=== PATIENT | female | born 1990 | race Caucasian/White ===

== ENCOUNTER → 2017-07-09 | Outpatient (REF) | payer BC | LOC: M SFHCWAGY 09:26 | PROVIDERS: ATTEND Nurse Practitioner Women's Health | DX: Z01.419 Encounter for gynecological examination (general) (routine) without abnormal findings (principal); Z11.51 Encounter for screening for human papillomavirus (HPV); R87.610 Atypical squamous cells of undetermined significance on cytologic smear of cervix (ASC-US) ==

== ENCOUNTER → 2019-09-04 | Outpatient (REF) | payer BC | LOC: M LAB REF 12:31 | PROVIDERS: ATTEND Physician Assistant | DX: N39.0 Urinary tract infection, site not specified (principal) ==

== ENCOUNTER → 2019-10-25 | Outpatient (CLI) | payer BC ==
[2019-10-25 13:22] LABS: BASO % 0.3 % (0.0-1.0); EOS % 0.5 % (0.0-3.0); HEMATOCRIT 37.7 % (36.0-47.0); HEMOGLOBIN 12.9 g/dl (12.0-15.5); LYMPH # 1.2 10^3/uL (1.5-5.0); LYMPH % 21.4 % (24.0-44.0); MEAN CORPUSCULAR HEMOGLOBIN 31.5 pg (27.0-33.0); MEAN CORPUSCULAR HGB CONC 34.2 g/dl (32.0-36.5); MONO # 0.3 10^3/uL (0.0-0.8); MONO % 5.4 % (0.0-5.0); NEUTROPHILS # 4.1 10^3/uL (1.5-8.5); NEUTROPHILS % 72.1 % (36.0-66.0); PLATELET COUNT, AUTOMATED 252 10^3/uL (150-450); WHITE BLOOD COUNT 5.7 10^3/uL (4.0-10.0)
[2019-10-25 14:40] LABS: HEPATITIS C VIRUS ABY INDEX 0.1 INDEX (<0.8); HIV 1&2 SCREEN CENTAUR NEGATIVE (NEGATIVE); RUBELLA IgG QUALITATIVE IMMUNE (IMMUNE)
[2019-10-25 15:06] LABS: CHLAMYDIA DNA AMPLIFICATION NEGATIVE (NEGATIVE); GC DNA AMPLIFICATION NEGATIVE (NEGATIVE)
== END ==
LOC: M PLALAB 09:28
PROVIDERS: ATTEND Advanced Practice Midwife
DX: Z34.01 Encounter for supervision of normal first pregnancy, first trimester (principal)

== ENCOUNTER → 2019-12-13 | Outpatient (CLI) | payer BC ==
--- NOTE | 2019-12-14 02:08 | REP ---
Clinical: Anatomical evaluation. Comparison: None . Findings: Examination demonstrates a single live intrauterine in variable presentation. motion is identified by technologist. Placenta is noted anterior and grade I without evidence for placenta previa or abruption. Amniotic fluid volume is normal. Cervix measures 3.8 cm in length and appears closed. No evidence for nuchal cord. Velamentous cord insertion noted along the right lateral/fundal portion of the placenta. Gestational age by LMP 19 weeks 4 days with STACI 05/04/2020 . Gestational age by current measurements 20 weeks 2 days with STACI 04/29/2020 . FHR equals 150 beats per minute. BPD 4.8 cm 20 weeks 3 days HC 17.7 cm 20 weeks 1 day AC 15.0 cm 20 weeks 1 day FL 3.2 cm 20 weeks 0 days HL 3.2 cm 20 weeks 5 days HC/AC ratio 1.18 Estimated weight 334 grams ( or 66 percentile). Anatomical assessment demonstrates normal structures including cranium, choroid plexus, cavum, cerebellum/posterior fossa, lungs, four-chamber heart/ventricular outflow tracts, diaphragm, stomach, cord insertion/three-vessel cord, kidneys/bladder, and extremities. Limited evaluation of the facial features and spine due to positioning. Impression: 1. Single live intrauterine in variable presentation demonstrating appropriate interval growth. 2. Velamentous cord insertion. 3. Limited evaluation of the spine and facial features. Electronically Signed by Bang Araujo MD 12/14/2019 01:59 A
== END ==
LOC: M RAD 17:31
PROVIDERS: ATTEND Advanced Practice Midwife
DX: O43.122 Velamentous insertion of umbilical cord, second trimester (principal); Z36.89 Encounter for other specified antenatal screening; Z3A.19 19 weeks gestation of pregnancy

== ENCOUNTER → 2020-01-22 | Outpatient (CLI) | payer BC ==
--- NOTE | 2020-01-22 16:29 | REP ---
Record ultrasound for follow-up of anatomy: On the prior study dated 12/13/2019 the facial profile, upper lip and spine could not be optimally demonstrated because of position. The remainder of the anatomy was unremarkable. A On the study today the facial profile is adequately demonstrated and unremarkable. On the study today the spine is adequately demonstrated and unremarkable. The lip is again suboptimally demonstrated. The remainder of the anatomy is unremarkable as previously. There is a single intrauterine gestation in a breech presentation. There is movement and cardiac activity. The heart rate is 133 beats per minute. The placenta is anterior. There is no placenta previa or abruptio. The placenta is grade zero. The amniotic fluid volume subjectively is normal. The heart rate is 133 beats per minute. Cervix measures through 0.0 cm length. Gestational age by today's ultrasound is 24-week 6 days. Gestational age by the first ultrasound is 25 weeks 2 days. Gestational age by LMP is 25 weeks 2 days. The selected STACI S 05/04/2020. weight is 763 grams/1 pound, 10 ounces. This is the 36 percentile for 25 weeks 2 days. Electronically Signed by Turner Munoz MD 01/22/2020 04:20 P
== END ==
LOC: M WHC 14:55
PROVIDERS: ATTEND Advanced Practice Midwife
DX: Z34.02 Encounter for supervision of normal first pregnancy, second trimester (principal); Z36.2 Encounter for other antenatal screening follow-up; Z3A.24 24 weeks gestation of pregnancy

== ENCOUNTER → 2020-02-01 | Outpatient (CLI) | payer BC ==
[2020-02-01 12:40] LABS: HEMATOCRIT 34.6 % (36.0-47.0); HEMOGLOBIN 11.5 g/dl (12.0-15.5); MEAN CORPUSCULAR HEMOGLOBIN 31.9 pg (27.0-33.0); MEAN CORPUSCULAR HGB CONC 33.2 g/dl (32.0-36.5); MEAN CORPUSCULAR VOLUME 96.1 fl (80.0-96.0); PLATELET COUNT, AUTOMATED 242 10^3/uL (150-450); WHITE BLOOD COUNT 10.2 10^3/uL (4.0-10.0)
== END ==
LOC: M PLALAB 08:25
PROVIDERS: ATTEND Advanced Practice Midwife
DX: Z34.02 Encounter for supervision of normal first pregnancy, second trimester (principal); Z3A.00 Weeks of gestation of pregnancy not specified

== ENCOUNTER → 2020-02-08 | Outpatient (CLI) | payer BC | LOC: M WHC 15:31 | PROVIDERS: ATTEND Obstetrics & Gynecology | DX: O43.123 Velamentous insertion of umbilical cord, third trimester (principal); Z53.9 Procedure and treatment not carried out, unspecified reason ==

== ENCOUNTER → 2020-02-20 | Outpatient (CLI) | payer BC ==
--- NOTE | 2020-02-20 10:05 | REP ---
Clinical: well-being Comparison: 01/22/2020 . Findings: Examination demonstrates a single live intrauterine in cephalic presentation. motion is identified by technologist. Placenta is noted anterior and grade I without evidence for placenta previa or abruption. Amniotic fluid volume is normal. Cervix measures 3.2 cm in length and appears closed. No evidence for nuchal cord. Gestational age by LMP 29 weeks 3 days with STACI 05/04/2020 . Gestational age by first US 29 weeks 3 days with STACI 05/04/2020 . FHR equals 138 beats per minute. Biophysical profile score: 8/8 Amniotic fluid index: 14.6 cm Umbilical cord SD ratio: 3.25 (2.50 - 3.50) Impression: Single live intrauterine in cephalic presentation demonstrating normal amniotic fluid volume and biophysical profile score.
== END ==
LOC: M WHC 08:24
PROVIDERS: ATTEND Obstetrics & Gynecology
DX: O43.123 Velamentous insertion of umbilical cord, third trimester (principal); Z3A.29 29 weeks gestation of pregnancy

== ENCOUNTER → 2020-03-08 | Outpatient (CLI) | payer BC ==
--- NOTE | 2020-03-08 15:05 | REP ---
OB ULTRASOUND: Real-time sonographic evaluation of the gravid uterus is performed. There is a single living intrauterine gestation. The estimated gestational age is 31 weeks 6 days, EDC 05/04/2020. Today's measurements indicate appropriate growth. BPD 77 mm = 31 weeks 0 days, 36th percentile HC 295 mm = 32 weeks 4 days, 61st percentile AC 281 mm = 32 weeks 1 day, 54th percentile Femur length 64 mm = 32 weeks 6 days, 64th percentile HC/AC ratio 1.05, normal range 0.96-1.15. Estimated weight 1943 grams, 51st percentile. Cervix is closed and measures 3.5 cm in length. heart rate 133 beats per minute. Amniotic fluid within normal limits, JULY 13.9 within normal range of 8.6-24.2. Visualized anatomy today includes lateral ventricles, upper lip, stomach, three vessel cord, kidneys, bladder and spine which are all grossly unremarkable. position vertex. Placenta anterior and grade 1 with no previa or abruption.
== END ==
LOC: M WHC 10:24
PROVIDERS: ATTEND Advanced Practice Midwife
DX: O43.103 Malformation of placenta, unspecified, third trimester (principal); Z3A.31 31 weeks gestation of pregnancy

== ENCOUNTER → 2020-03-15 | Outpatient (REF) | payer BC ==
[2020-03-15 12:23] LABS: HEMATOCRIT 32.5 % (36.0-47.0); HEMOGLOBIN 10.8 g/dl (12.0-15.5); MEAN CORPUSCULAR HEMOGLOBIN 30.5 pg (27.0-33.0); MEAN CORPUSCULAR HGB CONC 33.2 g/dl (32.0-36.5); MEAN CORPUSCULAR VOLUME 91.8 fl (80.0-96.0); PLATELET COUNT, AUTOMATED 208 10^3/uL (150-450); RED BLOOD COUNT 3.54 10^6/uL (4.00-5.40)
[2020-03-15 12:57] LABS: ALBUMIN 2.7 GM/DL (3.2-5.2); ALT/SGPT 18 U/L (12-78); AMYLASE 92 U/L (25-115); BILIRUBIN,DIRECT < 0.1 MG/DL (0.0-0.2); BILIRUBIN,TOTAL 0.3 MG/DL (0.2-1.0); LIPASE 102 U/L (73-393); TOTAL PROTEIN 6.6 GM/DL (6.4-8.2)
== END ==
LOC: M PLALAB 09:59
PROVIDERS: ATTEND Advanced Practice Midwife
DX: R10.11 Right upper quadrant pain (principal)

== ENCOUNTER → 2020-03-15 | Outpatient (CLI) | payer BC ==
--- NOTE | 2020-03-15 14:53 | REP ---
REASON FOR EXAM: Right upper quadrant pain. No pertinent priors. The liver is seen with a small 8 mm sized echogenic focus in the right lobe. There is no ren increased through transmission. There is no intrahepatic or extrahepatic ductal dilatation. The common bile duct measures 3 mm in it greatest transverse dimension transmission. Seen within the gallbladder, there is an echogenic focus adherent to the posterior wall measuring 4 mm. There is no pericholecystic edema. There are no echogenic foci which casts acoustic shadows. The imaged portion of the pancreas and right kidney are within normal limits. IMPRESSION: 1. Small echogenic focus seen in the liver of uncertain etiology. It might represent a small hemangioma. Previous CT scan of the abdomen obtained 03/02/2016 showed no hepatic abnormalities. Given the ultrasonographic finding of today, I would recommend pre- and post contrast enhanced dynamic hepatic CT. 2. Small echogenic focus adherent to the gallbladder wall as described above likely a small gallbladder polyp. 3-month followup ultrasound is recommended.
== END ==
LOC: M WHC 09:06
PROVIDERS: ATTEND Advanced Practice Midwife
DX: R10.11 Right upper quadrant pain (principal)

== ENCOUNTER → 2020-04-05 | Outpatient (REF) | payer BC | LOC: M SFHCWAGY 16:59 | PROVIDERS: ATTEND Advanced Practice Midwife | DX: O43.103 Malformation of placenta, unspecified, third trimester (principal); Z3A.00 Weeks of gestation of pregnancy not specified ==

== ENCOUNTER → 2020-04-08 | Outpatient (CLI) | payer BC ==
--- NOTE | 2020-04-08 20:02 | REP ---
Clinical: Anatomical evaluation. Comparison: 03/08/2020 . Findings: Examination demonstrates a single live intrauterine in cephalic presentation. motion is identified by technologist. Placenta is noted anterior and grade zero without evidence for placenta previa or abruption. Velamentous cord insertion again noted. Amniotic fluid volume is normal. Cervix measures 3.7 cm in length and appears closed. No evidence for nuchal cord. Gestational age by LMP 36 weeks 2 days with STACI 05/04/2020 . Gestational age by current measurements 35 weeks 5 days with STACI 05/08/2020 . FHR equals 128 beats per minute. Amniotic fluid index: 9.7 cm Estimated weight by current biometrical measurements 2805 grams ( 45th percentile). Impression: 1. Single live intrauterine in cephalic presentation demonstrating appropriate interval growth. 2. Velamentous cord insertion again noted.
== END ==
LOC: M WHC 08:09
PROVIDERS: ATTEND Advanced Practice Midwife
DX: O43.103 Malformation of placenta, unspecified, third trimester (principal)

== ENCOUNTER 2020-04-29 08:43 | Inpatient (IN) | payer BC ==
[2020-04-29] VITALS (14 sets, daily range): BP systolic 109–143; BP diastolic 56–87
[~2020-04-29] VITALS: Ht 162.6 cm; Wt 72.6 kg
[2020-04-29] MEDS ORDERED: PRENTAB9 PO (08:57)
[2020-04-29 09:43] LABS: HEMATOCRIT 30.7 % (36.0-47.0); MEAN CORPUSCULAR HEMOGLOBIN 27.4 pg (27.0-33.0); MEAN CORPUSCULAR HGB CONC 32.6 g/dl (32.0-36.5); MEAN CORPUSCULAR VOLUME 84.1 fl (80.0-96.0); PLATELET COUNT, AUTOMATED 171 10^3/uL (150-450); RED BLOOD COUNT 3.65 10^6/uL (4.00-5.40)
[2020-04-29] MEDS ORDERED: miSOPROStol 50 MCG 1/2 TAB (S0191) PO ONE ×3 (10:00→21:30)
[2020-04-29] MEDS ORDERED: miSOPROStol 50 MCG 1/2 TAB (S0191) PV ONE (16:00)
[2020-04-30] VITALS (58 sets, daily range): BP systolic 95–144; BP diastolic 51–93
[2020-04-30] MEDS ORDERED: OXYTOCIN 30 UNITS IN 0.9% NaCl 500ML IV BAG (J2590) As Ordered ONE ×3 (01:42→18:03)
[2020-04-30] MEDS ORDERED: OXYTOCIN DRIP 30 UNITS in IV 1 EA IV SCH ×5 (01:45→17:02)
--- NOTE | 2020-04-30 06:56 | HPE ---
DATE OF ADMISSION: 04/29/2020 Kathy is a 30-year-old, 1, para 0, at 39-2/7 weeks gestation with an expected date of confinement (EDC) of 05/04/2020 based on last menstrual period and confirmed by first trimester ultrasound. She presents to labor and delivery today for induction of labor due to velamentous cord insertion. She denies regular painful contractions, vaginal bleeding or leakage of fluid. The fetus has been active. Her care was initiated at [facility] in the first trimester. Her course was complicated by a velamentous cord insertion. She did undergo antepartum testing which returned normal results and normal growth ultrasounds. She also underwent a gallbladder ultrasound that showed a gallbladder polyp with a plan to repeat the gallbladder sono at 6 weeks and also a question of a liver hemangioma. The plan is to have a CT without contrast following her delivery. PAST MEDICAL HISTORY: Scoliosis. SURGERIES: None. FAMILY HISTORY: Asthma, rheumatoid arthritis. SOCIAL HISTORY: The patient is . Her is at bedside and supportive. She is a nonsmoker. Denies alcohol and drug use. There is no history of any sexually transmitted infections. She denies history of abuse - physical, sexual and emotional allergies. ALLERGIES: No known drug allergies. CURRENT MEDICATIONS: vitamins. OBSTETRICAL HISTORY: Primigravida. OBSTETRIC LABS: A+, antibody screen negative, RPR negative, hepatitis B surface antigen negative, hepatitis C antibody nonreactive, HIV negative, rubella immune, gonorrhea and chlamydia negative. Urine culture no growth. Gestational diabetic screening normal at 92. GBS is negative. OBJECTIVE: Temperature 97.9, pulse 73, respirations 18, blood pressure (BP) is 132/83. She is alert and oriented x3. She is in no apparent distress. heart rate is 113 with moderate variability, positive accelerations, negative decelerations. Contractions are every 2-5 minutes and do palpate mild. Her abdomen is gravid, cephalic presentation by Alberto's. Estimated weight 3000 grams. Sterile Vaginal Exam: 1 cm dilated, 80% effaced, -2 station, very posterior and soft. No show with the exam. ASSESSMENT: Intrauterine at 39-2/7 weeks. heart rate category one. PLAN: Admit the patient to labor and delivery. Routine labs. Out of bed ad gilles. Regular diet at this time. Saline lock. I do plan to start misoprostol 50 mcg by mouth for cervical ripening. The patient is desiring an epidural for her labor coping. I will likely start IV Pitocin and may consider artificial rupture of membranes (AROM) for labor augmentation following epidural. I did review all risks, benefits and alternatives with the patient. She and her have had all of their questions answered. She has been verbally consented for emergency surgery and blood products if they are necessary. I do anticipate cervical ripening and labor.
[2020-04-30] MEDS ORDERED: FENTANYL 2MCG/ML ROPIVACAINE 0.2% IN 0.9% NACL 100ML IVBAG As Ordered ONE (08:08)
[2020-04-30] MEDS ORDERED: LACTATED RINGER'S 1000 ML IV ONE (08:30)
[2020-04-30] MEDS: LR 1,000 ML IV SCH ×2 (09:23→10:34)
[2020-04-30] MEDS ORDERED: diphenhydrAMINE 50MG/ML VIAL (J1200) IV PRN ×2 (09:30→16:50)
[2020-04-30] MEDS ORDERED: LACTATED RINGER'S 1000 ML IV PRN (09:30)
[2020-04-30] MEDS ORDERED: EPIDURAL COMMENT XX SCH (09:30)
[2020-04-30] MEDS ORDERED: EPIDURAL/PCA KEYS XX PRN (09:30)
[2020-04-30] MEDS ORDERED: NALOXONE INJ 0.4MG/1ML VIAL (J2310 PER 1MG) IV PRN ×3 (09:30→16:50)
[2020-04-30] MEDS ORDERED: FENTANYL/ROPIVACAINE/NACL BAG 100 ML EPIDURAL SCH (09:30)
[2020-04-30] MEDS ORDERED: ONDANSETRON 4MG/2ML VIAL IV PRN ×3 (09:30→17:30)
[2020-04-30] MEDS ORDERED: REFRIGERATOR IV KEYS XX PRN (09:30)
[2020-04-30] MEDS ORDERED: ePHEDrine SULFATE 25 MG/5 ML(5MG/ML) SYRINGE IV PRN (09:30)
[2020-04-30] MEDS ORDERED: ceFAZolin 2 GM/D5W 50 ML IV BAG (J0690 PER 500MG) As Ordered ONE (15:49)
[2020-04-30] MEDS ORDERED: BICITRA 30ML SOLN UDC As Ordered ONE (15:49)
[2020-04-30] MEDS ORDERED: LACTATED RINGER'S 1000 ML IV STA (15:49)
[2020-04-30] MEDS ORDERED: AZITHROMYCIN INJ 500MG VIAL (J0456 PER 500MG) As Ordered ONE (15:50)
[2020-04-30] MEDS ORDERED: ceFAZolin SOD 2 GM in IV 1 EA IV ONE (16:00)
[2020-04-30] MEDS ORDERED: AZITHROMYCIN INJ 500 MG, VIAL MATE ADAPTER 1 EACH in D5W 250 ML IV ONE (16:00)
[2020-04-30] MEDS ORDERED: EPINEPHrine INJ 1 MG/ML 1ML AMP As Ordered ONE (16:12)
[2020-04-30] MEDS ORDERED: LIDOCAINE PRES-FREE 2% 10ML AMP As Ordered ONE ×2 (16:12→16:13)
[2020-04-30] MEDS ORDERED: fentaNYL 100 MCG/2 ML INJECTION (J3010) As Ordered ONE ×2 (16:45→17:21)
[2020-04-30] MEDS ORDERED: dexameTHASONE 4 MG/ML 1ML VIAL (J1100 PER 1MG) As Ordered ONE (16:47)
[2020-04-30] MEDS ORDERED: OXYTOCIN INJ 10 UNITS/ML VIAL (J2590) As Ordered ONE (16:47)
[2020-04-30] MEDS ORDERED: ONDANSETRON 4MG/2ML VIAL As Ordered ONE (16:47)
[2020-04-30] MEDS ORDERED: METOCLOPRAMIDE INJ 10MG/2ML VIAL (J2765 PER 1) IV PRN (16:50)
[2020-04-30] MEDS ORDERED: MORPHINE PRES-FREE INJ 10 MG/10 ML VIAL (J2274) As Ordered ONE (16:50)
[2020-04-30] MEDS ORDERED: NALBUPHINE HCL 10 MG/ML AMP (J2300) IV PRN ×2 (16:50→17:30)
[2020-04-30] MEDS ORDERED: LR 1,000 ML IV SCH (17:02)
[2020-04-30] MEDS ORDERED: PERCOCET 5MG/325MG TAB PO PRN (17:15)
[2020-04-30] MEDS ORDERED: MEASLES,MUMPS,RUBELLA VACCINE INJ (MMR-II) (90707) SC SCH (17:15)
[2020-04-30] MEDS ORDERED: METHYLERGONOVINE MALEATE 0.2 MG TAB PO PRN (17:15)
[2020-04-30] MEDS ORDERED: ANUSOL HC CREAM 30GM TOP PRN (17:15)
[2020-04-30] MEDS ORDERED: MOM 30ML SUSPENSION UDC PO PRN (17:15)
[2020-04-30] MEDS ORDERED: ONDANSETRON 4 MG ORAL DISINTEGRATING TAB PO PRN (17:15)
[2020-04-30] MEDS ORDERED: RHOGAM 300 MCG (1500 IU) INJ (J2790) IM SCH (17:15)
[2020-04-30] MEDS: fentaNYL 100 MCG/2 ML INJECTION (J3010) IV PRN ×4 (17:24→17:51)
[2020-04-30] MEDS ORDERED: KETOROLAC 30 MG/ML 1ML VIAL IV PRN (17:30)
[2020-04-30] MEDS ORDERED: BICITRA 30ML SOLN UDC PO ONE (17:30)
[2020-04-30] MEDS ORDERED: KETOROLAC 30 MG/ML 1ML VIAL As Ordered ONE (18:10)
[2020-04-30] MEDS: KETOROLAC 30 MG/ML 1ML VIAL IV SCH ×2 (18:12→23:35)
[2020-04-30] MEDS: DOCUSATE SODIUM 100 MG CAP PO SCH (21:28)
[2020-05-01 02:00] VITALS: BP 116/68
[2020-05-01] MEDS: KETOROLAC 30 MG/ML 1ML VIAL IV SCH ×2 (05:06→13:01)
[2020-05-01 06:00] VITALS: BP 117/68
[2020-05-01] MEDS: DOCUSATE SODIUM 100 MG CAP PO SCH ×2 (07:35→20:24)
[2020-05-01] MEDS: PRENATAL VITAMINS CHEWABLE TABLET PO SCH (07:35)
[2020-05-01 09:34] LABS: HEMOGLOBIN 8.9 g/dl (12.0-15.5); MEAN CORPUSCULAR HEMOGLOBIN 26.9 pg (27.0-33.0); MEAN CORPUSCULAR HGB CONC 31.8 g/dl (32.0-36.5); MEAN CORPUSCULAR VOLUME 84.6 fl (80.0-96.0); PLATELET COUNT, AUTOMATED 152 10^3/uL (150-450); RED BLOOD COUNT 3.31 10^6/uL (4.00-5.40); WHITE BLOOD COUNT 21.7 10^3/uL (4.0-10.0)
[2020-05-01 10:00] VITALS: BP 110/71
[2020-05-01 14:04] VITALS: BP 117/66
[2020-05-01 18:00] VITALS: BP 117/77
[2020-05-01] MEDS: IBUPROFEN 800 MG TAB PO SCH (20:24)
[2020-05-01 22:00] VITALS: BP 123/75
[2020-05-01] MEDS ORDERED: SIMETHICONE 80 MG CHEW TAB PO PRN (23:15)
[2020-05-01] MEDS: PERCOCET 5MG/325MG TAB PO PRN (23:22)
[2020-05-02 02:00] VITALS: BP 113/66
[2020-05-02] MEDS: IBUPROFEN 800 MG TAB PO SCH ×2 (04:22→11:22)
[2020-05-02 06:00] VITALS: BP 114/71
[2020-05-02] MEDS: DOCUSATE SODIUM 100 MG CAP PO SCH (09:31)
[2020-05-02] MEDS: PRENATAL VITAMINS CHEWABLE TABLET PO SCH (09:31)
[2020-05-02] MEDS: PERCOCET 5MG/325MG TAB PO PRN (09:44)
--- NOTE | 2020-05-02 09:57 | DSES ---
DATE OF ADMISSION: 04/29/2020 DATE OF DISCHARGE: DISCHARGE DIAGNOSIS: Primary section, postoperative day #2, stable condition. SURGEON: Dr. Michele Chu SAP BASIS ARCHITECT: Sheba Graham, certified nurse mine captain HISTORY: Romy is a 30-year-old 1, para 1-0-0-1 now, who was admitted to labor and delivery for induction of labor. She did undergo a primary section due to arrest of descent. The surgery was uncomplicated. Her estimated blood loss (EBL) was 600 mL. She delivered a live male, 8 pounds 10 ounces, scores 8 and 9. Her postoperative course has been uncomplicated. She has been out of bed for self-care, elisabeth care. Her pain has been well managed with by mouth pain medications. She is voiding without difficulty, passing flatus, tolerating by mouth fluids and a regular diet. OBJECTIVE: Temperature 97.8, pulse 80, respirations 16, blood pressure (BP) is 113/66. Preoperative complete blood count (CBC) on 04/29/2020 with a hemoglobin of 10.0, hematocrit 30.7, platelet 171. Postoperative CBC on 05/01/2020: Hemoglobin 8.9, hematocrit 28.0, platelet 152. Her breasts are soft and nontender. Nipples are intact. Abdomen: Fundus firm at one fingerbreadth below umbilicus. Her incision with dressing applied. There is no new drainage. Perineum is intact. Lochia rubra scant. Bilateral lower extremities negative for edema. PLAN: Discharge the patient home today. Prescriptions have been E-prescribed to her pharmacy by Dr. Michele Chu. She is to followup at [facility] for a 2-week incision check and an 8-week visit. I did review discharge instructions that include breast care, incision care, elisabeth care, activity and lifting restrictions, pelvic rest, danger signs to report, and access to care.
[2020-05-03] MEDS ORDERED: OXYC1TAB23 PO (10:46)
[2020-05-03] MEDS ORDERED: IBUP-1022 PO (10:47)
--- NOTE | 2020-05-06 07:06 | RO ---
DATE OF DELIVERY: 04/30/2020 PREDELIVERY DIAGNOSES: Term , labor, arrest of descent. POSTDELIVERY DIAGNOSIS: Delivered. PROCEDURE: Primary low transverse section. SURGEON: Michele Chu MD BRANCH CREDIT COUNSELOR: Sheba Graham CNM ANESTHESIA: Epidural. ESTIMATED BLOOD LOSS: 600 mL. URINE OUTPUT: 50 mL. FINDINGS: 3900 gram (8 pound 10 ounce) male , scores 8 and 9. Normal uterus, fallopian tubes, ovaries. OPERATIVE SUMMARY: Patient taken to the operating room, where epidural anesthesia was adequate. She was prepped and draped in sterile fashion in the supine position. Martin catheter was already in place. A Pfannenstiel skin incision was made with a scalpel and carried through to the fascia, the fascia nicked and extended. The fascia was dissected off the rectus muscles. Peritoneal cavity was entered. A Mobius retractor was placed. A bladder flap was created. A curvilinear incision was made in the lower uterine segment until light meconium-stained fluid was noted. This was extended manually. The infant was delivered from the vertex position without difficulty. The cord was doubly clamped and cut. The was handed off to the awaiting nurse. The placenta was expressed. The uterus was cleared of clots and debris. Uterine incision was closed with #0 Vicryl in running locked fashion. A second imbricating layer of #0 Vicryl was placed. Peritoneum was closed with #2-0 Vicryl in running fashion. The Mobius retractor was removed. The fascia was closed with #0 Vicryl. Deep layer was irrigated. The skin was closed with #4-0 Monocryl subcuticular sutures. Sponge, instrument, and needle counts were correct. Darcy Graham CNM, assisted throughout the procedure. She helped create each layer of the incision. She helped delivery the fetus and subsequently close. She was indispensable to the successful completion of the procedure.
== END 2020-05-02 13:00 | disposition home or self-care (01) | DRG 540 ==
LOC: M LDI 08:43 → M OBS 04-30 18:48
PROVIDERS: ADMIT Advanced Practice Midwife; ATTEND Specialist
PROC: 3E0P7GC Introduction of Other Therapeutic Substance into Female Reproductive, Via Natural or Artificial Opening (ICD-10-PCS; 2020-04-29)
PROC: 10D00Z1 Extraction of Products of Conception, Low, Open Approach (ICD-10-PCS; principal; 2020-04-30 16:48)
DX: O69.89X0 Labor and delivery complicated by other cord complications, not applicable or unspecified (principal); O64.0XX0 Obstructed labor due to incomplete rotation of fetal head, not applicable or unspecified; Z3A.39 39 weeks gestation of pregnancy; Z37.0 Single live birth

== ENCOUNTER → 2021-03-20 | Outpatient (REF) | payer BC ==
[~2021-03-20] MED LIST: IBUP-1022 PO; OXYC1TAB23 PO; PRENTAB9 PO
== END ==
LOC: M SFHCWAGY 13:20
PROVIDERS: ATTEND Nurse Practitioner Women's Health
DX: Z12.4 Encounter for screening for malignant neoplasm of cervix (principal)
CPT/HCPCS: 87624; G0123

== ENCOUNTER → 2021-11-13 | Outpatient (CLI) | payer BC ==
[2021-11-13 18:06] LABS: BASO % 0.3 % (0.0-1.0); EOS # 0.1 10^3/uL (0.0-0.5); EOS % 0.5 % (0.0-3.0); HEMATOCRIT 38.6 % (36.0-47.0); HEMOGLOBIN 13.4 g/dl (12.0-15.5); LYMPH # 2.7 10^3/uL (1.5-5.0); LYMPH % 27.2 % (24.0-44.0); MEAN CORPUSCULAR HEMOGLOBIN 31.4 pg (27.0-33.0); MEAN CORPUSCULAR HGB CONC 34.7 g/dl (32.0-36.5); MEAN CORPUSCULAR VOLUME 90.4 fl (80.0-96.0); MONO # 0.4 10^3/uL (0.0-0.8); MONO % 4.4 % (2.0-8.0); NEUTROPHILS # 6.6 10^3/uL (1.5-8.5); NEUTROPHILS % 67.3 % (36.0-66.0); PLATELET COUNT, AUTOMATED 263 10^3/uL (150-450); RED BLOOD COUNT 4.27 10^6/uL (4.00-5.40); WHITE BLOOD COUNT 9.7 10^3/uL (4.0-10.0)
[2021-11-13 19:12] LABS: HEPATITIS C VIRUS ABY INDEX 0.1 INDEX (<0.8); HIV 1&2 SCREEN CENTAUR NEGATIVE (NEGATIVE)
[2021-11-13 19:53] LABS: GC DNA AMPLIFICATION NEGATIVE (NEGATIVE)
== END ==
LOC: M PLALAB 15:05
PROVIDERS: ATTEND Advanced Practice Midwife
DX: O34.211 Maternal care for low transverse scar from previous cesarean delivery (principal); Z3A.00 Weeks of gestation of pregnancy not specified

== ENCOUNTER → 2021-12-15 | Outpatient (REF) | payer BC | LOC: M SFHCWAGY 16:59 | PROVIDERS: ATTEND Advanced Practice Midwife | DX: O26.892 Other specified pregnancy related conditions, second trimester (principal) ==

== ENCOUNTER → 2022-01-28 | Outpatient (CLI) | payer BC | LOC: M RAD 15:59 | PROVIDERS: ATTEND Advanced Practice Midwife | DX: Z34.92 Encounter for supervision of normal pregnancy, unspecified, second trimester (principal); Z36.89 Encounter for other specified antenatal screening; Z3A.19 19 weeks gestation of pregnancy ==

== ENCOUNTER → 2022-03-27 | Outpatient (CLI) | payer BC ==
[2022-03-27 15:10] LABS: HEMATOCRIT 34.2 % (36.0-47.0); HEMOGLOBIN 11.6 g/dl (12.0-15.5); MEAN CORPUSCULAR HEMOGLOBIN 31.7 pg (27.0-33.0); MEAN CORPUSCULAR HGB CONC 33.9 g/dl (32.0-36.5); MEAN CORPUSCULAR VOLUME 93.4 fl (80.0-96.0); PLATELET COUNT, AUTOMATED 221 10^3/uL (150-450); RED BLOOD COUNT 3.66 10^6/uL (4.00-5.40); WHITE BLOOD COUNT 7.8 10^3/uL (4.0-10.0)
[2022-03-27 17:03] LABS: GC DNA AMPLIFICATION NEGATIVE (NEGATIVE)
== END ==
LOC: M PLALAB 11:15
PROVIDERS: ATTEND Specialist
DX: Z34.82 Encounter for supervision of other normal pregnancy, second trimester (principal); Z3A.00 Weeks of gestation of pregnancy not specified

== ENCOUNTER → 2022-05-26 | Outpatient (REF) | payer BC | LOC: M PLALAB 07:43 | PROVIDERS: ATTEND Advanced Practice Midwife | DX: O34.219 Maternal care for unspecified type scar from previous cesarean delivery (principal) ==

== ENCOUNTER → 2022-06-21 | Outpatient (CLI) | payer BC ==
[~2022-06-21] MED LIST changes: +ACET-683 PO; +COLA100C5 PO; +PSEU30TA86 PO
== END ==
LOC: M LABSMTC 11:48
PROVIDERS: ATTEND Anesthesiology
DX: Z01.812 Encounter for preprocedural laboratory examination (principal); Z20.822 Contact with and (suspected) exposure to COVID-19

== ENCOUNTER 2022-07-29 20:07 | Emergency (ER) | payer BC ==
[~2022-07-29] VITALS: Ht 162.6 cm; Wt 56.9 kg
[2022-07-29 21:17] LABS: BASO % 0.4 % (0.0-1.0); EOS # 0.3 10^3/uL (0.0-0.5); EOS % 2.5 % (0.0-3.0); HEMATOCRIT 34.9 % (36.0-47.0); HEMOGLOBIN 11.1 g/dl (12.0-15.5); LYMPH # 1.2 10^3/uL (1.5-5.0); LYMPH % 11.3 % (24.0-44.0); MEAN CORPUSCULAR HEMOGLOBIN 27.4 pg (27.0-33.0); MEAN CORPUSCULAR HGB CONC 31.8 g/dl (32.0-36.5); MEAN CORPUSCULAR VOLUME 86.2 fl (80.0-96.0); MONO # 0.5 10^3/uL (0.0-0.8); MONO % 4.8 % (2.0-8.0); NEUTROPHILS # 8.6 10^3/uL (1.5-8.5); NEUTROPHILS % 80.4 % (36.0-66.0); PLATELET COUNT, AUTOMATED 310 10^3/uL (150-450); RED BLOOD COUNT 4.05 10^6/uL (4.00-5.40); WHITE BLOOD COUNT 10.7 10^3/uL (4.0-10.0)
[2022-07-29] MEDS ORDERED: ACETAMINOPHEN 325 MG TAB PO ONE (21:40)
[2022-07-29 21:48] LABS: ERYTHROCYTE SEDIMENTATION RATE 56 mm/hr (0-20)
[2022-07-29] MEDS ORDERED: ceFAZolin SOD 1 GM in D5W MINI-BAG PLUS 50 ML IV ONE (22:45)
[2022-07-29 23:03] VITALS: BP 107/63
[2022-07-29] MEDS ORDERED: DIFL200T PO (23:11)
== END 2022-07-29 23:21 | disposition home or self-care (01) ==
LOC: M ED 20:07
DX: N61.1 Abscess of the breast and nipple (principal); Z87.440 Personal history of urinary (tract) infections
CPT/HCPCS: 76642; 80047; 83605; 85025; 85652; 86140; 87040; 96365; 99283; J0690

== ENCOUNTER → 2022-07-31 | Outpatient (REF) | payer BC ==
[~2022-07-31] MED LIST changes: +DIFL200T PO
== END ==
LOC: M SFHCWAGY 16:54
PROVIDERS: ATTEND Surgery
DX: N61.1 Abscess of the breast and nipple (principal)

== ENCOUNTER → 2023-06-22 | Outpatient (REF) | payer BC | LOC: M SFHCWAGY 13:26 | PROVIDERS: ATTEND Advanced Practice Midwife | DX: Z12.4 Encounter for screening for malignant neoplasm of cervix (principal); R87.610 Atypical squamous cells of undetermined significance on cytologic smear of cervix (ASC-US) | CPT/HCPCS: 87624; G0123 ==

== ENCOUNTER → 2024-03-08 | Outpatient (REF) | payer BC ==
[~2024-03-08] MED LIST changes: -PSEU30TA86 PO; +PSEU30TA87 PO
== END ==
LOC: M LAB REF 17:08
PROVIDERS: ATTEND Registered Nurse
DX: R30.0 Dysuria (principal)

== ENCOUNTER → 2024-06-27 | Outpatient (REF) | payer BC ==
[2024-06-29 15:02] LABS: HPV APTIMA Not Detected (Not Detected)
== END ==
LOC: M SFHCWAGY 12:37
PROVIDERS: ATTEND Advanced Practice Midwife
DX: Z12.4 Encounter for screening for malignant neoplasm of cervix (principal); R87.610 Atypical squamous cells of undetermined significance on cytologic smear of cervix (ASC-US)
CPT/HCPCS: 87624; G0123

== ENCOUNTER → 2025-11-06 | Outpatient (REF) | payer BC ==
[~2025-11-06] MED LIST changes: -IBUP-1022 PO; +IBUP600T42 PO
[2025-11-08 13:50] LABS: HPV APTIMA Not Detected (Not Detected)
== END ==
LOC: M SFHCWAGY 13:06
PROVIDERS: ATTEND Advanced Practice Midwife
DX: Z12.4 Encounter for screening for malignant neoplasm of cervix (principal); R87.610 Atypical squamous cells of undetermined significance on cytologic smear of cervix (ASC-US)
CPT/HCPCS: 87624; G0123